=== PATIENT | male | born 1985 | race African-American/Black ===

== ENCOUNTER 2019-04-01 14:43 | Emergency (ER) | payer BC, OTHER ==
[~2019-04-01] VITALS: Ht 203.2 cm; Wt 117.9 kg
[2019-04-01 17:22] VITALS: BP 139/61
== END 2019-04-01 17:53 | disposition home or self-care (01) ==
LOC: ER 14:43
DX: G56.91 Unspecified mononeuropathy of right upper limb (principal); M79.9 Soft tissue disorder, unspecified; M79.621 Pain in right upper arm
CPT/HCPCS: 93005; 93971